=== PATIENT | male | born 1965 | race Hispanic/Latino ===

== ENCOUNTER 2018-10-18 17:37 | Emergency (ER) | payer BC ==
[2018-10-18] MEDS ORDERED: BENZONATATE 100 MG CAPSULE PO ONE (17:51)
[2018-10-18] MEDS ORDERED: DEXAMETHASONE SOD PHOSPHATE 10MG/ML 1ML VIAL ONE (17:51)
[2018-10-18] MEDS ORDERED: GUAIFENESIN-CODEINE 5 ML SYRUP ONE (17:51)
[2018-10-18] MEDS ORDERED: ALBUTEROL SULFATE 0.083% 2.5 MG/3 ML INH IH ONE (17:55)
== END 2018-10-18 19:12 | disposition home or self-care (01) ==
LOC: EDH 17:37
DX: J11.1 Influenza due to unidentified influenza virus with other respiratory manifestations (principal); J40 Bronchitis, not specified as acute or chronic; I10 Essential (primary) hypertension; E11.9 Type 2 diabetes mellitus without complications
CPT/HCPCS: 71046; 94640; 96372; 99284; J1100

== ENCOUNTER → 2019-12-24 | Outpatient (CLI) | payer BC | END | disposition home or self-care (01) | LOC: OIH 12-23 12:39 | PROVIDERS: ATTEND Internal Medicine | DX: M19.011 Primary osteoarthritis, right shoulder (principal) | CPT/HCPCS: 73030 ==

== ENCOUNTER 2020-05-08 20:25 | Emergency (ER) | payer BC ==
[2020-05-08] MEDS ORDERED: ONDANSETRON HCL 4 MG/2 ML VIAL ONE (20:58)
[2020-05-08] MEDS ORDERED: MORPHINE SULFATE 4 MG/1ML SYG ONE (20:59)
[2020-05-08] MEDS ORDERED: CEFAZOLIN SODIUM 1 GM VIAL ONE (20:59)
[2020-05-08] MEDS ORDERED: SODIUM CHLORIDE 0.9% 50 ML IV ONE (21:01)
[2020-05-08 21:22] LABS: BASOPHILS % (AUTO) 0.8 % (0.0-5.0); EOSINOPHILS % (AUTO) 2.5 % (0.0-8.0); LYMPHOCYTES % (AUTO) 20.9 % (21.0-51.0); MEAN CORPUSCULAR HEMOGLOBIN 29.7 pg (27.0-33.0); MEAN CORPUSCULAR HGB CONC 35.1 g/dL (32.0-36.0); MEAN CORPUSCULAR VOLUME 84.6 fL (79-99); MONOCYTES % (AUTO) 8.7 % (3.0-13.0); NEUTROPHILS % (AUTO) 66.5 % (40.0-77.0); PLATELET COUNT (AUTO) 237 K/uL (130-400); RED BLOOD CELL COUNT(AUTO) 4.61 MIL/uL (4.50-6.20); RED CELL DISTRIBUTION WIDTH 13.4 % (11.0-15.5); WHITE BLOOD COUNT (AUTO) 5.3 K/uL (4.8-10.8)
[2020-05-08] MEDS ORDERED: LIDOCAINE HCL 1% 20 ML VIAL ONE (21:23)
[2020-05-08 21:31] LABS: CREATININE 1.3 mg/dL (0.5-1.5); POTASSIUM 4.1 mmol/L (3.5-5.1)
[2020-05-08 21:34] LABS: INR 0.92 (0.85-1.15); PARTIAL THROMBOPLASTIN TIME 21.6 SEC (26.3-35.5)
[2020-05-08 21:35] LABS: ALBUMIN 4.1 g/dL (3.5-5.0); BILIRUBIN,TOTAL 0.4 mg/dL (0.2-1.0); TOTAL PROTEIN, SERUM 7.7 g/dL (6.0-8.3)
[2020-05-08] MEDS ORDERED: HYDROMORPHONE HCL 0.5 MG/0.5 ML ML ONE (22:24)
== END 2020-05-08 23:25 | disposition home or self-care (01) ==
LOC: EDH 20:25
DX: S22.42XA Multiple fractures of ribs, left side, initial encounter for closed fracture (principal); S93.104A Unspecified dislocation of right toe(s), initial encounter; E11.9 Type 2 diabetes mellitus without complications; I10 Essential (primary) hypertension; M10.9 Gout, unspecified; W18.39XA Other fall on same level, initial encounter; Y93.01 Activity, walking, marching and hiking; Y92.89 Other specified places as the place of occurrence of the external cause; Y99.8 Other external cause status
CPT/HCPCS: 36415; 71101; 71250; 73660 ×2; 80053; 85025; 85610; 85730; 93005; 96365; 96375; 99285; C1776; J0690; J1170; J2270; J2405; 12041; 28515

== ENCOUNTER 2020-05-11 12:17 | Emergency (ER) | payer BC | END 2020-05-11 13:57 | disposition home or self-care (01) | LOC: EDH 12:17 | DX: S92.501G Displaced unspecified fracture of right lesser toe(s), subsequent encounter for fracture with delayed healing (principal); X58.XXXD Exposure to other specified factors, subsequent encounter; E11.9 Type 2 diabetes mellitus without complications; I10 Essential (primary) hypertension; M10.9 Gout, unspecified | CPT/HCPCS: 99281 ==

== ENCOUNTER 2021-08-29 08:31 | Emergency (ER) | payer BC, OTHER ==
[~2021-08-29] VITALS: Ht 175.3 cm; Wt 99.8 kg
[2021-08-29] MEDS ORDERED: KETOROLAC 60 MG VIAL (30MG/ML) IM SCH (09:00)
[2021-08-29 09:02] VITALS: BP 148/111
[2021-08-29] MEDS ORDERED: DICL50TA9 PO (09:02)
[2021-08-29] MEDS ORDERED: CYCL10TA16 PO (09:02)
== END 2021-08-29 09:31 | disposition home or self-care (01) ==
LOC: EDH 08:31
DX: M54.50 Low back pain, unspecified (principal); G89.29 Other chronic pain; E11.9 Type 2 diabetes mellitus without complications; E78.00 Pure hypercholesterolemia, unspecified; I10 Essential (primary) hypertension; Z79.1 Long term (current) use of non-steroidal anti-inflammatories (NSAID); Z90.49 Acquired absence of other specified parts of digestive tract
CPT/HCPCS: 99283; 96372; J1885

== ENCOUNTER 2023-01-30 11:35 | Emergency (ER) | payer OTHER ==
[~2023-01-30] VITALS: Ht 175.3 cm; Wt 96.6 kg
[~2023-01-30 11:35] MED LIST: CYCL10TA16 PO; DICL50TA9 PO; LIDOP TP; MELO7.5T12 PO; ORPH100T4 PO
[2023-01-30 13:09] VITALS: BP 136/86
[2023-01-30 13:35] LABS: BASOPHILS % (AUTO) 0.9 % (0.0-5.0); EOSINOPHILS % (AUTO) 1.3 % (0.0-8.0); HEMATOCRIT 46.6 % (42-54); LYMPHOCYTES % (AUTO) 20.2 % (21.0-51.0); MEAN CORPUSCULAR HEMOGLOBIN 30.5 pg (27.0-33.0); MEAN CORPUSCULAR HGB CONC 34.3 g/dL (32.0-36.0); MEAN CORPUSCULAR VOLUME 88.8 fL (79-99); MONOCYTES % (AUTO) 7.3 % (3.0-13.0); NEUTROPHILS % (AUTO) 70.1 % (40.0-77.0); PLATELET COUNT (AUTO) 172 K/uL (130-400); RED BLOOD CELL COUNT(AUTO) 5.25 MIL/uL (4.50-6.20); RED CELL DISTRIBUTION WIDTH 13.8 % (11.0-15.5); WHITE BLOOD COUNT (AUTO) 4.6 K/uL (4.8-10.8)
[2023-01-30 13:50] LABS: ALBUMIN 3.9 g/dL (3.5-5.0); CREATININE 0.8 mg/dL (0.5-1.5); POTASSIUM 3.8 mmol/L (3.5-5.1); TOTAL PROTEIN, SERUM 7.6 g/dL (6.0-8.3)
== END 2023-01-30 14:27 | disposition home or self-care (01) ==
LOC: EDH 11:35
DX: M94.0 Chondrocostal junction syndrome [Tietze] (principal); E11.9 Type 2 diabetes mellitus without complications; I10 Essential (primary) hypertension; Z79.1 Long term (current) use of non-steroidal anti-inflammatories (NSAID)
CPT/HCPCS: 36415; 71045; 73030; 80053; 83605; 84484; 85025; 93005